=== PATIENT | female | born 1965 | race African-American/Black ===

== ENCOUNTER 2019-06-19 19:49 | Emergency (ER) | payer MEDICARE ==
[~2019-06-19] VITALS: Ht 170.2 cm; Wt 64.0 kg
[~2019-06-19 19:49] MED LIST: CLON-364
[2019-06-19] MEDS ORDERED: CLONIDINE 0.2MG TABLET PO ONE (21:45)
[2019-06-19] MEDS ORDERED: ACETAMINOPHEN 500MG TABLET PO STA (23:59)
[2019-06-20] MEDS ORDERED: TRAMADOL 50MG TABLET PO ONE
[2019-06-20] MEDS ORDERED: CAPTOPRIL 12.5MG TABLET PO ONE (01:15)
[2019-06-20 02:04] VITALS: BP 168/84
== END 2019-06-20 02:05 | disposition home or self-care (01) ==
LOC: ER 19:49
DX: I16.0 Hypertensive urgency (principal); I10 Essential (primary) hypertension
CPT/HCPCS: 93005; 99284

== ENCOUNTER 2023-01-10 14:16 | Emergency (ER) | payer MEDICARE, OTHER ==
[~2023-01-10] VITALS: Ht 172.7 cm; Wt 68.0 kg
[2023-01-10] MEDS ORDERED: SODIUM CHLORIDE 0.9% 1000ML BAG (SEPSIS BOLUS) IV ONE (15:00)
[2023-01-10] MEDS ORDERED: MORPHINE SULFATE 4 MG/ML CPJ (NOT FOR IM USE) IV ONE (15:00)
[2023-01-10] MEDS ORDERED: HYDRALAZINE 20MG/ML VIAL IV ONE (15:00)
[2023-01-10] MEDS ORDERED: PIPERACILLIN/TAZ 3.375G PREMIX 50 ML IV NR (15:00)
[2023-01-10] MEDS ORDERED: PIPERACILLIN/TAZOBACTAM 3.375GM/50ML PREMIX IV ONE (15:00)
[2023-01-10 15:15] LABS: CLARITY URINE CLEAR (CLEAR); COLOR URINE YELLOW (YELLOW); KETONES URINE NEGATIVE (NEGATIVE); LEUKOCYTE ESTERASE URINE NEGATIVE (NEGATIVE); NITRITE URINE NEGATIVE (NEGATIVE); OCCULT BLOOD URINE NEGATIVE (NEGATIVE); PROTEIN URINE 1+ (NEGATIVE); SPECIFIC GRAVITY URINE 1.009 (1.005-1.030); UROBILINOGEN URINE 0.2 E.U./dL (0.2-1.0)
[2023-01-10 15:58] LABS: BASOPHILS % 0.2 % (0.0-2.0); EOSINOPHILS % 1.3 % (0.0-5.0); HEMATOCRIT. 35.6 % (36.0-48.0); HEMOGLOBIN. 11.7 g/dL (12.0-16.0); LYMPHOCYTES % 10.6 % (20.0-50.0); MEAN PLATELET VOLUME 9.3 fl (7.4-10.4); MONOCYTES % 5.9 % (2.0-8.0); PLATELET 172 x1000/uL (130-400); RED CELL DISTRIBUTION WIDTH 14.2 % (11.6-14.6)
[2023-01-10 16:00] LABS: CHLORIDE 106 mEq/L (98-107)
[2023-01-10 16:01] LABS: INR 1.1; PROTHROMBIN TIME 11.5 sec (9.6-11.0)
[2023-01-10] MEDS ORDERED: CLON0.1T MT (19:33)
[2023-01-10] MEDS ORDERED: AMLO10TA80 MT (19:34)
[2023-01-10] MEDS ORDERED: KETOROLAC 30MG/ML VIAL IV NR (20:30)
[2023-01-10 21:00] VITALS: BP 183/94
== END 2023-01-10 21:45 | disposition home or self-care (01) ==
LOC: ER 14:16
DX: R10.31 Right lower quadrant pain (principal); I10 Essential (primary) hypertension
CPT/HCPCS: 36415; 80053; 81003; 83605; 83690; 85025; 85610; 87040; 96365; 96366; 96375; 99285; J0360; J1885; J2543; J7030; Z7610; J2270